=== PATIENT | male | born 2000 | race Caucasian/White ===

== ENCOUNTER 2020-10-16 17:18 | Emergency (ER) | payer OTHER, SELFPAY ==
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
[2020-10-16 17:48] VITALS: BP 129/91; PULSE 85; RESP 18; TEMP 37.1; O2SAT 99; BMI 35.9
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
[2020-10-16 20:10] VITALS: BP 134/84; PULSE 85; RESP 16; O2SAT 97
== END 2020-10-16 20:11 | disposition home or self-care (01) ==
PROVIDERS: Emergency Provider Emergency Medicine Emergency Medical Services; PCP Internal Medicine
DX: S22.42XA Multiple fractures of ribs, left side, initial encounter for closed fracture (principal); V47.5XXA Car driver injured in collision with fixed or stationary object in traffic accident, initial encounter; Y93.89 Activity, other specified; Y92.411 Interstate highway as the place of occurrence of the external cause; Y99.9 Unspecified external cause status
CPT/HCPCS: 71046; 99283; 99284